=== PATIENT | female | born 1935 | race Caucasian/White ===

== ENCOUNTER 2017-03-21 13:51 | Inpatient (IN) | payer OTHER, MEDICARE ==
[~2017-03-21] VITALS: Ht 152.4 cm; Wt 88.2 kg
[2017-03-21 13:53] VITALS: BP 182/78; PULSE 86; RESP 16; TEMP 98.3; O2SAT 96
--- NOTE | 2017-03-21 16:22 | PD ---
HPI Chief Complaint: Skin Problem Time Seen by Provider: 16:15 Travel History International Travel<30 days: No Contact w/Intl Traveler<30days: No Traveled to known affect area: No History of Present Illness HPI 81yo F presented to the ED with cellulitis of the R hand. Pt stated that 1 week ago she was bitten by her cat. The next she went to urgent care and was prescribed clindamycin. Today, 03/21/16, she went to her PCP for follow up, when he PCP prescribed her doxycycline due to the lack of response to the medication and referred her to the ED. She has a significant medical history of type 2 diabetes, HTN and high cholesterol. Pt denies fevers, vomiting, nausea, SOB or chest pain. Pt does report mild tenderness of her R hand, with some resolution. Modifying Factors: None Associated Signs & Symptoms: Cat bite to the right hand, not doing well it antiepileptics for 1 week, sent in by primary care doctor Risk Factors: Diabetes PFSH Social History Tobacco Use: No Allergies-Medications (Allergen,Severity, Reaction): Coded Allergies: amoxicillin (Verified Allergy, Unknown, 03/21/17) Review of Systems Except as stated in HPI: all other systems reviewed are Neg Physical Exam Narrative GENERAL: Pleasant 81yo W/F well-developed and well-nourished. Alert and oriented x3. SKIN: Warm and dry. Erythema and edema of the dorsum of the R hand covering about 5cm. there is a blister that is unroofed at the dorsum of the hand but a do not see any significant drainage. I do not palpate significant underlying fluctuance at this time. HEAD: Atraumatic. Normocephalic. NECK: Trachea midline. No JVD. CARDIOVASCULAR: Regular rate and rhythm. RESPIRATORY: No accessory muscle use. Clear to auscultation. Breath sounds equal bilaterally. GASTROINTESTINAL: Abdomen soft, non-tender, nondistended. Hepatic and splenic margins not palpable. MUSCULOSKELETAL: Extremities without clubbing, cyanosis, or edema. No obvious deformities. NEUROLOGICAL: Awake and alert. No obvious cranial nerve deficits. Motor grossly within normal limits. Five out of 5 muscle strength in the arms and legs. Normal speech. PSYCHIATRIC: Appropriate mood and affect; insight and judgment normal. Data Data Last Documented VS Vital Signs Date Time Temp Pulse Resp B/P (MAP) Pulse Ox O2 Delivery O2 Flow Rate FiO2 03/21/17 13:53 98.3 86 16 182/78 (112) 96 Orders Orders Complete Blood Count With Diff (03/21/17 14:31) Basic Metabolic Panel (Bmp) (03/21/17 14:31) Act Partial Throm Time (Ptt) (03/21/17 14:31) Prothrombin Time / Inr (Pt) (03/21/17 14:31) Blood Culture (03/21/17 16:10) Hand, Limited (2vws) (03/21/17 16:15) Vancomycin Inj (Vancomycin Inj) (03/21/17 18:00) Admit Order (Ed Use Only) (03/21/17 18:14) Labs Laboratory Tests Test 03/21/17 15:15 White Blood Count 8.0 TH/MM3 Red Blood Count 4.17 MIL/MM3 Hemoglobin 12.2 GM/DL Hematocrit 37.0 % Mean Corpuscular Volume 88.8 FL Mean Corpuscular Hemoglobin 29.3 PG Mean Corpuscular Hemoglobin Concent 33.0 % Red Cell Distribution Width 13.8 % Platelet Count 265 TH/MM3 Mean Platelet Volume 8.5 FL Neutrophils (%) (Auto) 47.1 % Lymphocytes (%) (Auto) 40.3 % Monocytes (%) (Auto) 8.4 % Eosinophils (%) (Auto) 3.5 % Basophils (%) (Auto) 0.7 % Neutrophils # (Auto) 3.8 TH/MM3 Lymphocytes # (Auto) 3.2 TH/MM3 Monocytes # (Auto) 0.7 TH/MM3 Eosinophils # (Auto) 0.3 TH/MM3 Basophils # (Auto) 0.1 TH/MM3 CBC Comment DIFF FINAL Differential Comment Prothrombin Time 10.1 SEC Prothromb Time International Ratio 1.0 RATIO Activated Partial Thromboplast Time 27.3 SEC Blood Urea Nitrogen 23 MG/DL Creatinine 0.93 MG/DL Random Glucose 119 MG/DL Calcium Level 9.2 MG/DL Sodium Level 144 MEQ/L Potassium Level 4.1 MEQ/L Chloride Level 109 MEQ/L Carbon Dioxide Level 28.5 MEQ/L Anion Gap 7 MEQ/L Estimat Glomerular Filtration Rate 58 ML/MIN MDM Medical Decision Making Medical Screen Exam Complete: Yes Emergency Medical Condition: Yes Medical Record Reviewed: Yes Interpretation(s) Laboratory Tests Test 03/21/17 15:15 Monocytes (%) (Auto) 8.4 % (0.0-8.0) Blood Urea Nitrogen 23 MG/DL (7-18) Random Glucose 119 MG/DL (74-106) Chloride Level 109 MEQ/L (98-107) Estimat Glomerular Filtration Rate 58 ML/MIN (>89) Last 24 hours Impressions Hand X-Ray 03/21/17 1615 Signed Impressions: Service Date/Time: Tuesday, March 21, 2017 16:19 - CONCLUSION: Soft tissue swelling no foreign body.. Fabián Childers MD FACR Differential Diagnosis Right hand cellulitis, rule out osteomyelitis versus sepsis, outpatient therapy failed Narrative Course X-ray did not show any signs of acute bony issues. Lab work is unremarkable. Cultures were drawn and IV vancomycin initiated. At this point, my plan would be to admit the patient for further IV therapy and possible hand consult as well. Case has been discussed with Dr. Layne for admission. Diagnosis Primary Impression: Cellulitis of right hand Additional Impression: Cat bite Admitting Information Admitting Physician Requests: Admit Ruthie Beebe MD Mar 21, 2017 16:22
--- NOTE | 2017-03-21 16:42 | RADRPT ---
EXAM DATE/TIME: 03/21/2017 16:19 [place] COMPARISON: No previous studies available for comparison. INDICATIONS : Pain from cat bite. MEDICAL HISTORY : None. SURGICAL HISTORY : None. ENCOUNTER: Initial ACUITY: 3 days PAIN SCORE: 7/10 LOCATION: Right hand, posterior aspect. FINDINGS: Generalized soft tissue swelling without radiopaque foreign body or fracture. CONCLUSION: Soft tissue swelling no foreign body.. Fabián Childers MD FACR on March 21, 2017 at 16:39 Board Certified Radiologist. This report was verified electronically.
[2017-03-21 17:19] LABS: AUTOMATED NEUTROPHIL # 3.8 TH/MM3 (1.8-7.7); BASOPHIL # 0.1 TH/MM3 (0-0.2); BASOPHIL % 0.7 % (0.0-2.0); EOSINOPHIL # 0.3 TH/MM3 (0-0.4); EOSINOPHIL % 3.5 % (0.0-4.0); HEMOGLOBIN 12.2 GM/DL (11.6-15.3); LYMPH % 40.3 % (9.0-44.0); LYMPHOCYTE # 3.2 TH/MM3 (1.0-4.8); MEAN CELL VOLUME 88.8 FL (80.0-100.0); MEAN CORPUSCULAR HEMOGLOBIN 29.3 PG (27.0-34.0); MEAN PLATELET VOLUME 8.5 FL (7.0-11.0); MONO % 8.4 % (0.0-8.0); MONOCYTE # 0.7 TH/MM3 (0-0.9); NEUT % 47.1 % (16.0-70.0); PLATELET COUNT 265 TH/MM3 (150-450); RED BLOOD COUNT 4.17 MIL/MM3 (4.00-5.30); RED CELL DISTRIBUTION WIDTH 13.8 % (11.6-17.2)
[2017-03-21 17:26] LABS: PROTHROMBIN TIME - PATIENT 10.1 SEC (9.8-11.6)
[2017-03-21 17:40] LABS: BICARBONATE 28.5 MEQ/L (21.0-32.0); CALCIUM 9.2 MG/DL (8.5-10.1); CREATININE 0.93 MG/DL (0.50-1.00)
[2017-03-21] MEDS ORDERED: VANCOMYCIN INJ 200 ML IV ONE (17:45)
[2017-03-21] MEDS ORDERED: VANCOMYCIN 1,000 MG/NS 250 ML IV ONE ×2 (18:00)
[2017-03-21] MEDS ORDERED: SENNOSIDES 8.6 MG TAB PO PRN (18:45)
[2017-03-21] MEDS ORDERED: ACETAMINOPHEN 325 MG TAB PO PRN (18:45)
[2017-03-21] MEDS ORDERED: BISACODYL 10 MG SUPP RECTAL PRN (18:45)
[2017-03-21] MEDS ORDERED: SODIUM CHLORIDE 0.9% FLUSH 10 ML FLUSH IV FLUSH PRN (18:45)
[2017-03-21] MEDS ORDERED: ONDANSETRON HCL 4 MG/2 ML VIAL IVP PRN (18:45)
[2017-03-21] MEDS ORDERED: NALOXONE HCL 0.4 MG/ML AMP IV PUSH PRN (18:45)
[2017-03-21] MEDS ORDERED: LACTULOSE SYRUP 20 GM/30 ML CUP PO PRN (18:45)
[2017-03-21] MEDS ORDERED: MAGNESIUM HYDROXIDE SUSP 30 ML CUP PO PRN (18:45)
[2017-03-21] MEDS ORDERED: Vancomycin Consult Pharmacy 1 EA OTHER SCH (18:45)
[2017-03-21] MEDS ORDERED: LISI-519 PO (18:50)
[2017-03-21] MEDS ORDERED: GLIP10TA6 PO (18:50)
[2017-03-21] MEDS ORDERED: ZOCO10TA PO (18:50)
--- NOTE | 2017-03-21 19:03 | HHI.HP ---
HPI Service [facility] Primary Care Physician Ysa Farfan M.D. Admission Diagnosis right hand cellulitis/Bite/failed outpatient therapy Diagnoses: (1) Cellulitis of right hand Diagnosis: Principal (2) Failure of outpatient treatment Diagnosis: Principal (3) Dehydration Diagnosis: Principal (4) HTN (hypertension) Diagnosis: Principal (5) DM (diabetes mellitus) Diagnosis: Principal Travel History International Travel<30 Days: No Contact w/Intl Traveler <30 Da: No Traveled to Known Affected Are: No History of Present Illness This is a 81-year-old female with a PMH of HTN, Hyperlipidemia and DM who was sent to the ER by her PCP, Dr. Farfan, for eval of right hand cellulitis. Pt states she was bitten by her cat approx 1wk ago. Developed significant hand swelling w/ erythema and decreased ROM. Reports pain 5/10, constant, worse w/ movement. No alleviating factors. Was started on Clindamycin which she has been taking for 1wk, mild improvement. Today was seen by PCP, started on Doxycycline and referred to the ER. Denies fever or chills. BP 182/78, HR 86, O2 sat 96% on RA, Afebrile. CBC unremarkable. BUN 23, GFR 58. INR 1.0. Hand X-ray was soft tissue swelling, no foreign body. S/p Vanc in ER. Dr. Raymond consulted by ER physician, pt seen in ER, recommended IV Cipro, will eval in am again. Review of Systems Except as stated in HPI: all other systems reviewed are Neg ROS: 14 point review of systems otherwise negative. Past Family Social History Past Medical History PMH: HTN, Hyperlipidemia and DM Past Surgical History PAST SURGICAL HISTORY: Right Rotator Cuff Surgery Allergies: Coded Allergies: amoxicillin (Verified Allergy, Unknown, 03/21/17) Family History PAST FAMILY HISTORY: Reviewed, positive for DM. Social History PAST SOCIAL HISTORY: Negative for alcohol, tobacco or drugs. Physical Exam Vital Signs Vital Signs Date Time Temp Pulse Resp B/P (MAP) Pulse Ox O2 Delivery O2 Flow Rate FiO2 03/21/17 18:44 80 18 03/21/17 13:53 98.3 86 16 182/78 (263) 30 Physical Exam PE: GENERAL: Very pleasant elderly white female in no acute distress, appears younger than stated age. HEENT: PERRLA, EOMI. No scleral icterus or conjunctival pallor. No lid lag or facial droop. CARDIOVASCULAR: Regular rate and rhythm. No obvious murmurs to auscultation. No chest tenderness to palpation. RESPIRATORY: No obvious rhonchi or wheezing. Clear to auscultation. Breath sounds equal bilaterally. GASTROINTESTINAL: Abdomen soft, non-tender, nondistended. BS normal. MUSCULOSKELETAL: Extremities without clubbing, cyanosis, or edema. No obvious deformities. Right hand erythema/edema, full ROM of fingers/wrist. Pulses intact. NEUROLOGICAL: Awake, alert and oriented x4. No focal neurologic deficits. Moving both upper and lower extremities spontaneously. Laboratory Laboratory Tests Test 03/21/17 15:15 White Blood Count 8.0 Red Blood Count 4.17 Hemoglobin 12.2 Hematocrit 37.0 Mean Corpuscular Volume 88.8 Mean Corpuscular Hemoglobin 29.3 Mean Corpuscular Hemoglobin Concent 33.0 Red Cell Distribution Width 13.8 Platelet Count 265 Mean Platelet Volume 8.5 Neutrophils (%) (Auto) 47.1 Lymphocytes (%) (Auto) 40.3 Monocytes (%) (Auto) 8.4 Eosinophils (%) (Auto) 3.5 Basophils (%) (Auto) 0.7 Neutrophils # (Auto) 3.8 Lymphocytes # (Auto) 3.2 Monocytes # (Auto) 0.7 Eosinophils # (Auto) 0.3 Basophils # (Auto) 0.1 CBC Comment DIFF FINAL Differential Comment Prothrombin Time 10.1 Prothromb Time International Ratio 1.0 Activated Partial Thromboplast Time 27.3 Blood Urea Nitrogen 23 Creatinine 0.93 Random Glucose 119 Calcium Level 9.2 Sodium Level 144 Potassium Level 4.1 Chloride Level 109 Carbon Dioxide Level 28.5 Anion Gap 7 Estimat Glomerular Filtration Rate 58 Date/Time Source Procedure Growth Status 03/21/17 18:14 Blood Peripheral Aerobic Blood Culture Pending Received 03/21/17 18:14 Blood Peripheral Anaerobic Blood Culture Pending Received Result Diagram: 03/21/17 1515 03/21/17 1515 Caprini VTE Risk Assessment Caprini VTE Risk Assessment: No/Low Risk (score <= 1) Caprini Risk Assessment Model Point Value = 1 Point Value = 2 Point Value = 3 Point Value = 5 Age 41-60 Minor surgery BMI > 25 kg/m2 Swollen legs Varicose veins or History of unexplained or recurrent spontaneous Oral contraceptives or hormone replacement Sepsis (< 1 month) Serious lung disease, including pneumonia (< 1 month) Abnormal pulmonary function Acute myocardial infarction Congestive heart failure (< 1 month) History of inflammatory bowel disease Medical patient at bed rest Age 61-74 Arthroscopic surgery Major open surgery (> 45 min) Laparoscopic surgery (> 45 min) Malignancy Confined to bed (> 72 hours) Immobilizing plaster cast Central venous access Age >= 75 History of VTE Family history of VTE Factor V Leiden Prothrombin [id number] Lupus anticoagulant Anticardiolipin antibodies Elevated serum homocysteine Heparin-induced thrombocytopenia Other congenital or acquired thrombophilia Stroke (< 1 month) Elective arthroplasty Hip, pelvis, or leg fracture Acute spinal cord injury (< 1 month) Prophylaxis Regimen Total Risk Factor Score Risk Level Prophylaxis Regimen 0-1 Low Early ambulation 2 Moderate Order ONE of the following: *Sequential Compression Device (SCD) *Heparin 5000 units SQ BID 3-4 Higher Order ONE of the following medications: *Heparin 5000 units SQ TID *Enoxaparin/Lovenox 40 mg SQ daily (WT < 150 kg, CrCl > 30 mL/min) *Enoxaparin/Lovenox 30 mg SQ daily (WT < 150 kg, CrCl > 10-29 mL/min) *Enoxaparin/Lovenox 30 mg SQ BID (WT < 150 kg, CrCl > 30 mL/min) AND/OR *Sequential Compression Device (SCD) 5 or more Highest Order ONE of the following medications: *Heparin 5000 units SQ TID (Preferred with Epidurals) *Enoxaparin/Lovenox 40 mg SQ daily (WT < 150 kg, CrCl > 30 mL/min) *Enoxaparin/Lovenox 30 mg SQ daily (WT < 150 kg, CrCl > 10-29 mL/min) *Enoxaparin/Lovenox 30 mg SQ BID (WT < 150 kg, CrCl > 30 mL/min) AND *Sequential Compression Device (SCD) Assessment and Plan Problem List: (1) Cellulitis of right hand ICD Code: L03.113 - Cellulitis of right upper limb Status: Acute (2) Failure of outpatient treatment ICD Code: Z78.9 - Other specified health status (3) Dehydration ICD Code: E86.0 - Dehydration (4) HTN (hypertension) ICD Code: I10 - Essential (primary) hypertension (5) DM (diabetes mellitus) ICD Code: E11.9 - Type 2 diabetes mellitus without complications Assessment and Plan A/P: 1. Right Hand Cellulitis: s/p cat bite approx 1wk ago, mild improvement w/ Clinda as outpatient. Hand X-ray w/ soft tissue swelling, no foreign body, images reviewed by me. S/p eval by Dr. Raymond w/ Hand Surgery, recommendation to continue w/ IV Cipro. Analgesics/antiemetics as needed for pain control. 2. Failed Outpt Tx: s/p Clindamycin PO x1 wk w/ minimal improvement, started Doxycycline today, took one dose. Will admit for persistent right hand cellulitis w/ failed outpatient tx. Continue w/ IV Cipro/Vanc. 3. HTN: Uncontrolled. BP 180's systolic. Resume home Lisinopril, start Metoprolol 25mg q12h. Monitor BP. 4. DM: Sliding scale w/ Accu-Cheks. Resume home Glipizide. Monitor BS. 5. Dehydration: BUN 23, GFR 58. IVF for hydration, repeat labs in am 6. DVT Prophylaxis: SCD/Teds. 7. Social work for d/c planning as needed. 8. Case discussed w/ ER physician at length, labs/imaging/records reviewed extensively by me. Physician Certification 2 Midnight Certification Type: Admission for Inpatient Services Order for Inpatient Services The services are ordered in accordance with Medicare regulations or non- Medicare payer requirements, as applicable. In the case of services not specified as inpatient-only, they are appropriately provided as inpatient services in accordance with the 2-midnight benchmark. Estimated LOS (days): 2 days is the estimated time the patient will need to remain in the hospital, assuming treatment plan goals are met and no additional complications. Post-Hospital Plan: Not yet determined Kyara Bolaños MD Mar 21, 2017 19:03
[2017-03-21] MEDS ORDERED: ACETAMINOPHEN/HYDROcodone 325 MG/5 MG TAB PO PRN (19:15)
[2017-03-21] MEDS ORDERED: MORPHINE SULFATE 2 MG/ML INJ IV PUSH PRN (19:15)
[2017-03-21 19:41] VITALS: BP 171/72; PULSE 83; RESP 16; O2SAT 95
[2017-03-21] MEDS ORDERED: DOXYCYCLINE HYCLATE 100 MG CAP PO SCH (21:00)
--- NOTE | 2017-03-21 21:03 | MB ---
cc: FELICITAS CABAN MD DATE OF CONSULTATION 03/21/17 HISTORY OF PRESENT ILLNESS The patient is a 81-year [id number] female who was bitten by her own cat approximately one week ago. She went to Urgent Care, was given a prescription for clindamycin which did not work. She stated it was a little bit better still had cellulitis. She went to her primary care doctor today who sent her to the emergency room. I am consulted for an abscess in her hand which she does not have. PAST MEDICAL HISTORY 1. Diabetes type 2, 2. Hypertension 3. High cholesterol PAST SURGICAL HISTORY Right shoulder surgery. ALLERGIES AMOXICILLIN FAMILY HISTORY Noncontributory IMAGING STUDIES X-rays performed reviewed today in the hospital reveal soft tissue swelling in the right hand. No fractures, foreign bodies or dislocations. There is mild arthritic change in the first CMC joint as well as the radioscaphoid joint and the third MP joint as well as minimal changes in the fingers. LABORATORY DATA White blood cell count 8000, platelet count 265,000 BUN, creatinine 23 and 0.93 and random glucose is 119. Coags are normal. REVIEW OF SYSTEMS Patient is not complaining of any headaches or blurry or double vision. She is not complaining of any wheezing, coughing, shortness of breath. She is not complaining of any chest pain or palpitations. She is not complaining of nausea, vomiting, or abdominal pain. She is not complaining of any burning, frequency or urgency with urination. She is not complaining of any neck or back pain. She is not complaining of any night sweats, fever or chills. She is not complaining of any lesions, rashes or eruptions on her skin. She is not complaining of any anxiety, depression or suicidal ideations. She is not complaining of any weight gain or weight loss. PHYSICAL EXAMINATION GENERAL: She is well-developed, well-nourished, no apparent distress. VITAL SIGNS: Temperature is 98.3, heart rate 83, respiratory rate 16, blood pressure 171/72, pulse ox 95-96% on room air. She is awake, alert and oriented x3 sitting comfortably in the bed in the emergency room. Examination of the right upper extremity reveals full active range of motion. There is resolving cellulitis with minimal edema and no erythema or induration on the dorsal aspect of the hand. There is no fluctuance. There is no abscess. There is an eschar that is in the central portion of the recovering cellulitis. She is neurovascularly intact throughout. Negative Tinel's sign. Right median and ulnar nerves at the wrist. All musculotendinous units are intact. Capillary refill is less than 2 seconds in all fingertips. There is no epitrochlear or axillary adenopathy palpable. The respiratory effort is normal. She is very pleasant. IMPRESSION Right hand cellulitis, resolving. PLAN I would recommend treating her with Cipro since she is ALLERGIC TO PENICILLIN for her cat bite, elevation, and then she may be discharged once we see some improvement from what we will consider her baseline right now. I discussed this with the medical doctor, Dr. Bolaños. I will follow this patient along with you. MD ROX Roberson III/ /7:53 PM /8:40 PM
[2017-03-21] MEDS: METOPROLOL TARTRATE 25 MG TAB PO SCH (23:14)
[2017-03-21] MEDS: DOCUSATE SODIUM 50 MG/SENNA 8.6 MG TAB PO SCH (23:14)
[2017-03-21] MEDS: LISINOPRIL 5 MG TAB PO SCH (23:14)
[2017-03-21] MEDS: SODIUM CHLORIDE 0.9% FLUSH 10 ML FLUSH IV FLUSH SCH (23:14)
[2017-03-21] MEDS: CIPROFLOXACIN 400 MG PREMIX 200 ML IV SCH (23:14)
[2017-03-22 00:28] VITALS: BP 179/73; PULSE 55; RESP 18; TEMP 98.4; O2SAT 95
[2017-03-22 04:14] VITALS: BP 139/65; PULSE 66; RESP 18; TEMP 98.6; O2SAT 94
[2017-03-22] MEDS ORDERED: VANCOMYCIN INJ 200 ML IV SCH (06:00)
[2017-03-22 06:11] LABS: AUTOMATED NEUTROPHIL # 3.4 TH/MM3 (1.8-7.7); BASOPHIL % 0.6 % (0.0-2.0); EOSINOPHIL # 0.4 TH/MM3 (0-0.4); EOSINOPHIL % 5.5 % (0.0-4.0); HEMATOCRIT 35.7 % (35.0-46.0); HEMOGLOBIN 11.9 GM/DL (11.6-15.3); LYMPH % 40.2 % (9.0-44.0); LYMPHOCYTE # 3.2 TH/MM3 (1.0-4.8); MEAN CELL VOLUME 89.2 FL (80.0-100.0); MEAN CORPUSCULAR HEMOGLOBIN 29.6 PG (27.0-34.0); MEAN CORPUSCULAR HGB CONC 33.2 % (32.0-36.0); MEAN PLATELET VOLUME 8.3 FL (7.0-11.0); MONO % 11.1 % (0.0-8.0); MONOCYTE # 0.9 TH/MM3 (0-0.9); NEUT % 42.6 % (16.0-70.0); PLATELET COUNT 243 TH/MM3 (150-450); RED BLOOD COUNT 4.01 MIL/MM3 (4.00-5.30); RED CELL DISTRIBUTION WIDTH 13.6 % (11.6-17.2)
[2017-03-22 06:36] LABS: BICARBONATE 25.5 MEQ/L (21.0-32.0); CREATININE 0.86 MG/DL (0.50-1.00)
[2017-03-22] MEDS ORDERED: glipiZIDE 10 MG TAB PO SCH (08:00)
--- NOTE | 2017-03-22 08:08 | HHI.PR ---
Subjective Remarks in no acute distress. afebrile. says that ' her hand has much improved'. although still with some swelling and erythema. pain is better. wants to go home today. Objective Vitals Vital Signs Date Time Temp Pulse Resp B/P (MAP) Pulse Ox O2 Delivery O2 Flow Rate FiO2 03/22/17 04:14 98.6 66 18 139/65 (89) 94 03/22/17 00:28 98.4 55 18 179/73 (108) 95 03/21/17 19:41 83 16 171/72 (105) 95 Room Air 03/21/17 18:44 80 18 03/21/17 13:53 98.3 86 16 182/78 (112) 96 Result Diagram: 03/22/17 0440 03/22/17 0440 Imaging Last Impressions Hand X-Ray 03/21/17 1615 Signed Impressions: Service Date/Time: Tuesday, March 21, 2017 16:19 - CONCLUSION: Soft tissue swelling no foreign body.. Fabián Childers MD FACR Objective Remarks GENERAL: This is a well-nourished, well-developed patient, in no apparent distress. CARDIOVASCULAR: Regular rate and regular rhythm without murmurs, gallops, or rubs. RESPIRATORY: Clear to auscultation. Breath sounds equal bilaterally. No wheezes , rales, or rhonchi. GASTROINTESTINAL: Abdomen soft, non-tender, nondistended. Normal, active bowel sounds MUSCULOSKELETAL: right hand with some swelling and erythema. NEURO: Alert & Oriented x4 to person, place, time, situation. Moves all ext x4 Medications and IVs Inpatient Medications Acetaminophen (Tylenol) 650 mg Q4H PRN PO TEMP > 100.4; Start 03/21/17 at 18:45 Acetaminophen/ Hydrocodone Bitart (Lapel 5-325 Mg) 1 tab Q4H PRN PO PAIN 3-5; Start 03/21/17 at 19:15 Bisacodyl (Dulcolax Supp) 10 mg DAILY PRN RECTAL SEVERE CONSITIPATION; Start at 18:45 Ciprofloxacin/ Dextrose 200 ml @ 200 mls/hr Q12H IV Last administered on at 23:14; Start 03/21/17 at 21:00 Doxycycline Hyclate (Vibramycin) 100 mg BID PO Last administered on 03/21/17at 22:00; Start 03/21/17 at 21:00 Glipizide (Glucotrol) 10 mg DAILYAC PO ; Start 03/22/17 at 08:00 Lactulose (Lactulose Liq) 30 ml DAILY PRN PO SEVERE CONSITIPATION; Start at 18:45 Lisinopril (Prinivil) 5 mg BID PO Last administered on 03/21/17at 23:14; Start 03/21/17 at 21:00 Magnesium Hydroxide (Milk Of Magnesia Liq) 30 ml Q12H PRN PO Mild constipation ; Start 03/21/17 at 18:45 Metoprolol Tartrate (Lopressor) 25 mg Q12HR PO Last administered on 03/21/17at 23:14; Start 03/21/17 at 21:00 Miscellaneous Information SPECIFIC LAB TO BE VLADISLAV... ONCE ONCE .XX ; Start 03/24 at 17:45; Stop 03/24/17 at 17:46 Morphine Sulfate (Morphine Inj) 2 mg Q3H PRN IV PUSH PAIN 6-10; Start 03/21/17 at 19:15 Naloxone HCl (Narcan Inj) 0.4 mg UNSCH PRN IV PUSH SEE LABEL COMMENTS; Start at 18:45 Ondansetron HCl (Zofran Inj) 4 mg Q6H PRN IVP NAUSEA OR VOMITING; Start at 18:45 Pharmacy Profile Note 0 ml @ 0 mls/hr UNSCH OTHER ; Start 03/21/17 at 18:45 Pravastatin Sodium (Pravachol) 20 mg DAILY PO ; Start 03/22/17 at 09:00 Senna/Docusate Sodium (Cathy-Colace) 1 tab BID PO Last administered on at 23:14; Start 03/21/17 at 21:00 Sennosides (Senokot) 17.2 mg Q12H PRN PO Moderate constipation; Start 03/21/17 at 18:45 Sodium Chloride (NS Flush) 2 ml BID IV FLUSH Last administered on 03/21/17at 23: 14; Start 03/21/17 at 21:00 Vancomycin HCl 1000 mg/Sodium Chloride 250 ml @ 250 mls/hr ONCE ONCE IV Last administered on 1/12/18at 18:44; Start 03/21/17 at 18:00; Stop 03/21/17 at 18:59 ; Status DC Vancomycin HCl 1250 mg/Sodium Chloride 262.5 ml @ 250 mls/hr Q24H IV ; Start at 18:00 A/P Problem List: (1) Cellulitis of right hand ICD Code: L03.113 - Cellulitis of right upper limb Status: Acute (2) Failure of outpatient treatment ICD Code: Z78.9 - Other specified health status (3) Dehydration ICD Code: E86.0 - Dehydration (4) HTN (hypertension) ICD Code: I10 - Essential (primary) hypertension (5) DM (diabetes mellitus) ICD Code: E11.9 - Type 2 diabetes mellitus without complications Assessment and Plan 1. Right Hand Cellulitis: s/p cat bite approx 1wk ago, mild improvement w/ Clinda as outpatient. Hand X-ray w/ soft tissue swelling, no foreign body. S/p eval by Dr. Raymond w/ Hand Surgery, recommendation to continue w/ IV Cipro. Analgesics/antiemetics as needed for pain control. 2. HTN: Resumed home Lisinopril. will consider increasing lisinopril if BP trends up again. 3. DM: Sliding scale w/ Accu-Cheks. Resume home Glipizide. Monitor BS. 4. Dehydration: improved. 5. DVT Prophylaxis: SCD/Teds. Discharge Planning dc home within the next 24 hrs if blood cultures negative and cleared by hand surgery. Jeannie Taveras MD Mar 22, 2017 08:08
[2017-03-22] MEDS ORDERED: GLUCAGON 1 MG/ML VIAL OTHER PRN (08:15)
[2017-03-22] MEDS ORDERED: DEXTROSE 50% IN WATER 50 ML VIAL(D50) IV PUSH PRN (08:15)
[2017-03-22] MEDS: DOCUSATE SODIUM 50 MG/SENNA 8.6 MG TAB PO SCH (09:00)
[2017-03-22] MEDS ORDERED: PRAVASTATIN SOD 20 MG TAB PO SCH (09:00)
[2017-03-22] MEDS: SODIUM CHLORIDE 0.9% FLUSH 10 ML FLUSH IV FLUSH SCH (09:37)
[2017-03-22] MEDS: METOPROLOL TARTRATE 25 MG TAB PO SCH (09:37)
[2017-03-22] MEDS: CIPROFLOXACIN 400 MG PREMIX 200 ML IV SCH (09:37)
[2017-03-22] MEDS: LISINOPRIL 5 MG TAB PO SCH (09:38)
[2017-03-22 09:45] VITALS: BP 135/77; PULSE 63; RESP 20; TEMP 96; O2SAT 96
[2017-03-22] MEDS ORDERED: INSULIN ASPART SUPPLEMENTAL SCALE SQ SCH (12:00)
[2017-03-22 12:17] VITALS: BP 156/65; PULSE 57; RESP 18; TEMP 96.5; O2SAT 96
[2017-03-22] MEDS ORDERED: CIPR-9 PO (12:27)
--- NOTE | 2017-03-22 12:30 | HHI.DCPOC ---
Discharge Care Plan Diagnosis: (1) Cellulitis of right hand (2) Cat bite (3) Failure of outpatient treatment (4) DM (diabetes mellitus) (5) HTN (hypertension) Goals to Promote Your Health * To prevent worsening of your condition and complications * To maintain your health at the optimal level Directions to Meet Your Goals Take your medications as prescribed Follow your dietary instruction Follow activity as directed Keep your appointments as scheduled Take your immunizations and boosters as scheduled If your symptoms worsen call your PCP, if no PCP go to Urgent Care Center or Emergency Room Smoking is Dangerous to Your Health. Avoid second hand smoke Call the 24-hour hour crisis hotline for domestic abuse at Tabatha Yang PA-C Mar 22, 2017 12:30 pm
[2017-03-22] MEDS ORDERED: VANCOMYCIN INJ 1,250 MG in SODIUM CHLOR 0.9% 250 ML INJ 250 ML IV SCH (18:00)
[2017-03-24] MEDS ORDERED: PHARMACY ORDERED LAB ONE (17:45)
== END 2017-03-22 17:22 | disposition home or self-care (01) | DRG 603 ==
LOC: NEPC 13:51 → NEDA 18:16 → NEPFCDU 22:59
PROVIDERS: ADMIT Internal Medicine; ATTEND Internal Medicine
DX: L03.113 Cellulitis of right upper limb (principal); E86.0 Dehydration; E11.9 Type 2 diabetes mellitus without complications; I10 Essential (primary) hypertension; E78.5 Hyperlipidemia, unspecified; S61.451D Open bite of right hand, subsequent encounter; W55.01XD Bitten by cat, subsequent encounter; Z79.84 Long term (current) use of oral hypoglycemic drugs; Z88.0 Allergy status to penicillin
CPT/HCPCS: 73120; 80048; 82948; 85025; 85610; 85730; 87040; 99285; J0744; J3370; J7050